=== PATIENT | male | born 1960 | race Caucasian/White ===

== ENCOUNTER 2016-11-14 23:40 | Emergency (ER) | payer BC ==
[~2016-11-14] VITALS: Ht 182.9 cm; Wt 81.6 kg
[~2016-11-14 23:40] MED LIST: NORPTMEDS CO
[2016-11-15 00:59] LABS: INR 1.05 (0.9-1.15); Prothrombin Time 10.8 sec (9.37-12.3)
[2016-11-15 01:00] LABS: Basophils # (auto) 0 uL; Basophils % (auto) 0.3 % (0.0-2.0); Eosinophils # (auto) 0.2 uL; Eosinophils % (auto) 1.4 % (0.0-7.0); Hemoglobin 18.5 g/dL (13.5-17.5); Lymphocytes # (auto) 2.8 uL; Lymphocytes % (auto) 25.1 % (10.0-50.0); Mean Corpuscular Hemoglobin 31.4 pg (28.0-32.0); Mean Corpuscular Hgb Conc. 32.2 g/dL (32.0-36.0); Mean Corpuscular Volume 97.5 fL (80.0-100.0); Mean Platelet Volume 8.1 fL (7.4-10.4); Monocytes # (auto) 0.6 uL; Monocytes % (auto) 5.8 % (0.0-12.0); Neutrophils # (auto) 7.5 uL; Neutrophils % (auto) 67.4 % (37.0-80.0); Platelet Count (auto) 305 10^3/uL (140-450); Red Cell Distribution Width 12.7 % (11.6-16.0); White Blood Cell 11.2 10^3/uL (4.4-10.8)
[2016-11-15 01:01] LABS: Hematocrit 57.7 % (41.0-53.0)
[2016-11-15 01:07] LABS: Albumin 4.3 g/dL (3.4-5.0); Magnesium 2.7 mg/dL (1.6-2.6); Potassium 3.8 mmol/L (3.5-5.1)
[2016-11-15 01:09] LABS: BUN/Creatinine Ratio 9.1
[2016-11-15 01:20] LABS: Bilirubin, Total 0.3 mg/dL (0.2-1.0); Total Protein 8.8 g/dL (6.4-8.2)
[2016-11-15] MEDS ORDERED: SODIUM CHLORIDE 0.9% 1,000 ML IV ONE (07:43)
[2016-11-15 07:45] VITALS: BP 145/87
[2016-11-15] MEDS ORDERED: LORazepam 2MG/ML-1ML VIAL IV ONE (07:45)
== END 2016-11-15 09:23 | disposition home or self-care (01) ==
LOC: EDBD 23:40 → ER 23:43
DX: R07.89 Other chest pain (principal); F10.10 Alcohol abuse, uncomplicated; J44.9 Chronic obstructive pulmonary disease, unspecified; Z87.891 Personal history of nicotine dependence
CPT/HCPCS: 36415; 71010; 80053; 80320; 83735; 84484; 85025; 85610; 85730; 93005; 94761; 96361; 96374; 99285; J2060; J7030

== ENCOUNTER 2018-07-23 20:17 | Emergency (ER) | payer BC ==
[~2018-07-23] VITALS: Ht 180.3 cm; Wt 86.2 kg
[2018-07-23 20:49] VITALS: BP 159/88
[2018-07-23 21:19] LABS: Basophils # (auto) 0.1 uL; Basophils % (auto) 1.3 % (0.0-2.0); Eosinophils # (auto) 0.1 uL; Nucleated Red Blood Cells % 0.3 %; Platelet Count (auto) 312 10^3/uL (140-450); White Blood Cell 5.3 10^3/uL (4.4-10.8)
[2018-07-23 21:20] LABS: Eosinophils % (auto) 2.1 % (0.0-7.0); Hematocrit 51.4 % (41.0-53.0); Hemoglobin 17.8 g/dL (13.5-17.5); Lymphocytes # (auto) 2.4 uL; Lymphocytes % (auto) 45.9 % (10.0-50.0); Mean Corpuscular Hemoglobin 33.7 pg (28.0-32.0); Mean Corpuscular Hgb Conc. 34.7 g/dL (32.0-36.0); Mean Corpuscular Volume 97.1 fL (80.0-100.0); Monocytes # (auto) 0.6 uL; Monocytes % (auto) 11.3 % (0.0-12.0); Neutrophils # (auto) 2.1 uL; Neutrophils % (auto) 39.4 % (37.0-80.0); Red Cell Distribution Width 13.1 % (11.8-14.3)
[2018-07-23 21:33] LABS: Urine Bacteria NONE SEEN /hpf (None Seen); Urine Blood Negative /uL (Negative); Urine Mucus FEW (None Seen); Urine Specific Gravity 1.013 (1.001-1.035); Urine WBC 3 /hpf (0 - 3)
[2018-07-23 21:35] LABS: INR 0.96 (0.9-1.15); Partial Thromboplastin Time 26.8 sec (23.78-33.04); Prothrombin Time 10.3 sec (9.27-12.13)
[2018-07-23 21:43] LABS: Albumin 3.7 g/dL (3.4-5.0); Anion Gap 12 (5-15); Blood Urea Nitrogen 6 mg/dL (7-18); Calcium 7.8 mg/dL (8.5-10.1); Carbon Dioxide 23 mmol/L (21-32); Chloride 107 mmol/L (98-107); Glucose 106 mg/dL (74-106); Potassium 3.9 mmol/L (3.5-5.1); Sodium 142 mmol/L (136-145)
[2018-07-23 21:46] LABS: Alanine Aminotransferase 58 U/L (16-61); Aspartate Aminotransferase 48 U/L (15-37); BUN/Creatinine Ratio 5.7; GFR African American 93 mL/min; GFR Non-African American 77 mL/min
[2018-07-23 21:51] LABS: Alkaline Phosphatase 68 U/L (45-117); Bilirubin, Total 0.5 mg/dL (0.2-1.0)
[2018-07-23 21:52] LABS: Amphetamine Screen, Urine NEGATIVE (NEGATIVE); Barbiturate Scree,Urine NEGATIVE (NEGATIVE); Benzodiazephine Screen, Urine NEGATIVE (NEGATIVE); Cannabinoid Screen, Urine POSITIVE (NEGATIVE); Cocaine Screen, Urine NEGATIVE (NEGATIVE); Opiate Scree,Urine NEGATIVE (NEGATIVE); Phencyclidine Screen, Urine NEGATIVE (NEGATIVE)
== END 2018-07-23 22:39 | disposition left against medical advice (07) ==
LOC: EDBD 20:17 → ER 20:22
DX: R04.2 Hemoptysis (principal); R06.02 Shortness of breath; Z53.21 Procedure and treatment not carried out due to patient leaving prior to being seen by health care provider
CPT/HCPCS: 36415; 71046; 80053; 80307; 81001; 84484; 85025; 85610; 85730

== ENCOUNTER 2020-03-07 16:21 | Inpatient (IN) | payer BC ==
[~2020-03-07] VITALS: Ht 182.9 cm; Wt 105.8 kg
[2020-03-07] MEDS ORDERED: SODIUM CHLORIDE 0.9% 1,000 ML IV ONE ×3 (16:43→17:30)
[2020-03-07] MEDS ORDERED: PANTOPRAZOLE 40 MG/10 ML VIAL INJ IV ONE (17:15)
[2020-03-07 17:25] LABS: Basophils # (auto) 0.1 10 ^3/uL (0-0.2); Basophils % (auto) 0.5 % (0.0-2.0); Eosinophils # (auto) 0.1 10 ^3/uL (0-0.8); Eosinophils % (auto) 0.5 % (0.0-7.0); Hematocrit 39.4 % (41.0-53.0); Hemoglobin 13.3 g/dL (13.5-17.5); Lymphocytes # (auto) 2.9 10 ^3/uL (0.4-5.4); Lymphocytes % (auto) 19.5 % (10.0-50.0); Mean Corpuscular Hemoglobin 33.3 pg (28.0-32.0); Mean Corpuscular Hgb Conc. 33.7 g/dL (32.0-36.0); Mean Corpuscular Volume 98.8 fL (80.0-100.0); Monocytes # (auto) 1.3 10 ^3/uL (0-1.3); Monocytes % (auto) 8.6 % (0.0-12.0); Neutrophils # (auto) 10.4 10 ^3/uL (1.6-8.6); Neutrophils % (auto) 70.9 % (37.0-80.0); Nucleated Red Blood Cells % 0.1 %; Platelet Count (auto) 327 10^3/uL (140-450); Red Blood Cells 3.98 10^6/uL (4.5-5.90); Red Cell Distribution Width 13.1 % (11.8-14.3); White Blood Cell 14.7 10^3/uL (4.4-10.8)
[2020-03-07 17:37] LABS: INR 0.99 (0.9-1.15); Partial Thromboplastin Time 22.7 sec (23.64-32.05)
[2020-03-07 17:38] LABS: Albumin 3.6 g/dL (3.4-5.0); Anion Gap 14 (5-15); Blood Urea Nitrogen 21 mg/dL (7-18); Calcium 8.5 mg/dL (8.5-10.1); Carbon Dioxide 22 mmol/L (21-32); Chloride 99 mmol/L (98-107); Glucose 128 mg/dL (74-106); Sodium 135 mmol/L (136-145)
[2020-03-07 17:44] LABS: Alanine Aminotransferase 38 U/L (16-61); Alkaline Phosphatase 58 U/L (45-117); Aspartate Aminotransferase 29 U/L (15-37); BUN/Creatinine Ratio 11.2; Bilirubin, Total 0.8 mg/dL (0.2-1.0); GFR African American 48 mL/min; GFR Non-African American 40 mL/min; Total Protein 7.6 g/dL (6.4-8.2)
[2020-03-07] MEDS ORDERED: MORPHINE SULF INJ 2 MG/ML SYRINGE 1ML IV PRN (17:45)
[2020-03-07] MEDS ORDERED: NITROGLYCERIN 0.4 MG SL TAB SL PRN (17:45)
[2020-03-07 17:50] LABS: Potassium 2.8 mmol/L (3.5-5.1)
[2020-03-07] MEDS ORDERED: POTASSIUM EFFERVESENT TAB 25 MEQ PO ONE (18:15)
[2020-03-07] MEDS ORDERED: SODIUM CHLORIDE 0.9% 2,650 ML IV ONE (18:15)
[2020-03-07 21:10] VITALS: BP 92/56
[2020-03-07] MEDS: POTASSIUM CHL 20MEQ/100ML 100 ML IV SCH ×2 (21:11→23:06)
[2020-03-07 21:15] VITALS: BP 92/56
--- NOTE | 2020-03-07 21:15 | NUR ---
Telemetry admit from ER STEPHEN SHERMAN admitted to Telemetry unit after SBAR received. Patient oriented to Denise novak RN, unit, room, bed, and unit policies regarding patient care and visiting hours. Patient now on continuous telemetry monitoring, tele box #[id number] and telemetry reading on arrival to unit is SINUS RHYTHM . Patient weighed by bedscale and encouraged to call if they need something. All questions and concerns addressed, patient verbalized understanding. NOTE: PATIENT IS A/OX4 UPON ARRIVING TO UNIT. PATIENT ON ROOM AIR. TWO IV'S IN PLACE. IV TO LEFT AND RIGHT AC 18G. INTACT AND PATENT. K RIDER X3 ORDERED, NOT YET GIVEN BY ER STAFF. WILL ADMINISTER NOW ORDERED BY MD FOR CRITICAL POTASSIUM LEVEL. PATIENT ALSO HAS AN ORDER FOR TWO UNITS OF FFP. UNABLE TO CLARIFY WITH ER NURSE THE REASON FOR FFP ORDER. WILL ATTEMPT TO CLARIFY WITH ORDERING MD. PATIENT NOT ACTIVELY BLEEDING AT THIS TIME. PATIENT STATES LAST BM WAS "THIS MORNING AND IT WAS DARK BLACK". PATIENT OTHERWISE STATES HE IS NOT BLEEDING. LAB VALUES WNL. VITALS STABLE.
[2020-03-07 23:00] VITALS: BP_SYST 59; BP_SYST 99; BP_DIAS 59
--- NOTE | 2020-03-07 23:20 | NUR ---
ORDER CLARIFICATION SPOKE WITH [employer] HOSPITALIST TO CLARIFY ORDER FOR TWO UNITS OF FFP. PATIENTS CHART REVIEWED INCLUDING: REASON FOR ADMISSION, LAST TAKEN LAB VALUES, AND CURRENT PATIENT STATUS. PER , "HOLD THE FRESH FROZEN PLASMA". PATIENT NOT ACTIVELY BLEEDING AND LABS ARE WITHIN NORMAL RANGE. PER , "HAVE DAYSHIFT FOLLOW UP WITH ".
[2020-03-08] MEDS ORDERED: PANTOPRAZOLE 40 MG/10 ML VIAL INJ IV ONE
[2020-03-08] MEDS ORDERED: SUCRALFATE 1 GM/10 ML ORAL SUSP PO ONE
[2020-03-08] MEDS: POTASSIUM CHLORIDE 40 MEQ in D5W/LACTATED RINGERS 1,000 ML IV SCH ×5 (00:23→19:45)
[2020-03-08 01:17] LABS: Urine Bacteria NONE SEEN /hpf (None Seen); Urine Blood Negative /uL (Negative); Urine Hyaline Cast MOD /lpf (0 - 2); Urine Mucus FEW (None Seen); Urine Specific Gravity 1.012 (1.001-1.035); Urine WBC 5 /hpf (0 - 3)
[2020-03-08] MEDS: POTASSIUM CHL 20MEQ/100ML 100 ML IV SCH (01:22)
[2020-03-08 01:26] LABS: Alcohol, Urine < 3.0 mg/dL (0-5); Amphetamine Screen, Urine NEGATIVE (NEGATIVE); Barbiturate Scree,Urine NEGATIVE (NEGATIVE); Benzodiazephine Screen, Urine NEGATIVE (NEGATIVE); Cannabinoid Screen, Urine POSITIVE (NEGATIVE); Cocaine Screen, Urine NEGATIVE (NEGATIVE); Opiate Scree,Urine NEGATIVE (NEGATIVE); Phencyclidine Screen, Urine NEGATIVE (NEGATIVE)
--- NOTE | 2020-03-08 04:33 | NUR ---
EKG EKG COMPLETED ORDERED BY MD FOLLOW UP. PLACED IN HARD CHART FOR MD TO SIGN
[2020-03-08 04:50] VITALS: BP 93/58
[2020-03-08 06:00] VITALS: BP 100/63
[2020-03-08] MEDS: SUCRALFATE 1 GM/10 ML ORAL SUSP PO SCH ×3 (06:06→16:59)
--- NOTE | 2020-03-08 06:57 | NUR ---
CLOSING PATIENT RESTING COMFORTABLY. NO S/S OF DISTRESS. NO BM DURING SHIFT. NO ACTIVE BLEEDING NOTED. PENDING AM LAB RESULTS. IV RUNNING ORDERED FLUIDS TO RIGHT AC. CALL LIGHT WITHIN REACH. WILL ENDORSE CARE TO DAYSHIFT RN
[2020-03-08 07:31] LABS: Basophils # (auto) 0 10 ^3/uL (0-0.2); Basophils % (auto) 0.4 % (0.0-2.0); Eosinophils # (auto) 0.1 10 ^3/uL (0-0.8); Eosinophils % (auto) 1.1 % (0.0-7.0); Hematocrit 29.2 % (41.0-53.0); INR 1.04 (0.9-1.15); Lymphocytes # (auto) 1.9 10 ^3/uL (0.4-5.4); Lymphocytes % (auto) 24.1 % (10.0-50.0); Mean Corpuscular Hgb Conc. 34.4 g/dL (32.0-36.0); Mean Corpuscular Volume 98.9 fL (80.0-100.0); Monocytes # (auto) 0.8 10 ^3/uL (0-1.3); Monocytes % (auto) 10.2 % (0.0-12.0); Neutrophils % (auto) 64.2 % (37.0-80.0); Nucleated Red Blood Cells % 0.1 %; Partial Thromboplastin Time 23.5 sec (23.64-32.05); Platelet Count (auto) 197 10^3/uL (140-450); Red Blood Cells 2.95 10^6/uL (4.5-5.90); Red Cell Distribution Width 12.8 % (11.8-14.3); White Blood Cell 7.9 10^3/uL (4.4-10.8)
[2020-03-08 07:37] LABS: Potassium 3.6 mmol/L (3.5-5.1)
[2020-03-08 07:45] LABS: % Iron Saturation 16.4 % (20-55)
[2020-03-08 07:54] LABS: Albumin 2.6 g/dL (3.4-5.0); BUN/Creatinine Ratio 13.7; Bilirubin, Total 0.7 mg/dL (0.2-1.0); Magnesium 2.3 mg/dL (1.6-2.6); Phosphorus 2.3 mg/dL (2.5-4.90); Total Protein 5.5 g/dL (6.4-8.2)
--- NOTE | 2020-03-08 07:55 | NUR ---
Opening Shift Note Assumed care of patient, awake and alert sitting up in bed. No S/S of distress/SOB or pain. Instructed on POC and to call for assist PRN, will continue to monitor for changes Q1hr and PRN. Addendum: 03/08/20 at 1854 by CAITLYN ZAVALA RN see new note
--- NOTE | 2020-03-08 07:55 | NUR ---
Opening Shift Note Assumed care of patient, awake and alert to person, place, time, and situation. No S/S of distress/SOB or pain. Instructed on POC and to call for assist PRN, will continue to monitor for changes Q1hr and PRN.
[2020-03-08 09:35] VITALS: BP 98/57
[2020-03-08] MEDS: PANTOPRAZOLE 40 MG/10 ML VIAL INJ IV SCH ×2 (09:36→23:03)
--- NOTE | 2020-03-08 12:58 | NUR ---
[facility] Phone call received from Anthony from [place] regarding patient's update on patient's status.
[2020-03-08 13:00] VITALS: BP 104/71
--- NOTE | 2020-03-08 15:30 | NUR ---
Hospitalist Dorian Turk at bedside.
--- NOTE | 2020-03-08 15:40 | NUR ---
FFP As per Dr. Turk, FFP is not indicated at this time. Notified blood bank.
[2020-03-08 17:08] VITALS: BP 127/75
--- NOTE | 2020-03-08 19:30 | NUR ---
Opening Shift Note Assumed care of patient. Patient is awake and alert. No S/S of distress/SOB or pain. Instructed on POC and to call for assist PRN, will continue to monitor for changes Q1hr and PRN. Bed locked in lowest position and bed rails up x2. Call light within reach.
[2020-03-08] MEDS ORDERED: MELATONIN PO PRN (20:00)
[2020-03-08 22:25] VITALS: BP 123/74
[2020-03-09] MEDS: POTASSIUM CHLORIDE 40 MEQ in D5W/LACTATED RINGERS 1,000 ML IV SCH ×2 (00:51→06:07)
[2020-03-09 05:07] VITALS: BP 127/71
[2020-03-09] MEDS: SUCRALFATE 1 GM/10 ML ORAL SUSP PO SCH ×3 (06:07→17:58)
[2020-03-09 06:08] LABS: Basophils # (auto) 0 10 ^3/uL (0-0.2); Eosinophils # (auto) 0.2 10 ^3/uL (0-0.8); Hemoglobin 10.3 g/dL (13.5-17.5); Mean Corpuscular Hgb Conc. 35.3 g/dL (32.0-36.0); Monocytes # (auto) 0.8 10 ^3/uL (0-1.3); Neutrophils # (auto) 4.3 10 ^3/uL (1.6-8.6); Nucleated Red Blood Cells % 0.1 %; Red Blood Cells 2.94 10^6/uL (4.5-5.90)
[2020-03-09 06:11] LABS: Basophils % (auto) 0.5 % (0.0-2.0); Eosinophils % (auto) 2.5 % (0.0-7.0); Hematocrit 29.2 % (41.0-53.0); Lymphocytes % (auto) 26.8 % (10.0-50.0); Mean Corpuscular Volume 99.3 fL (80.0-100.0); Neutrophils % (auto) 59.2 % (37.0-80.0); Platelet Count (auto) 192 10^3/uL (140-450); Red Cell Distribution Width 12.8 % (11.8-14.3); White Blood Cell 7.3 10^3/uL (4.4-10.8)
[2020-03-09 06:28] LABS: Potassium 3.9 mmol/L (3.5-5.1)
[2020-03-09 06:34] LABS: BUN/Creatinine Ratio 9.9; Calcium 7.7 mg/dL (8.5-10.1); Magnesium 3.1 mg/dL (1.6-2.6)
--- NOTE | 2020-03-09 07:32 | NUR ---
RECEIVED PATIENT FROM NOC SHIFT RN. PATIENT ALERT AND ORIENTED X4. NO S/S OF DISTRESS, DENIES SOB AND PAIN AT THIS TIME. PLAN OF CARE DISCUSSED. BED IN LOW AND LOCKED POSITION WITH RAILS UP X2, CALL LIGHT AND PHONE WITHIN REACH. WILL CONTINUE TO MONITOR Q1H AND PRN.
[2020-03-09 08:00] VITALS: BP 123/66
[2020-03-09 09:10] VITALS: BP 123/66
[2020-03-09] MEDS: PANTOPRAZOLE 40 MG/10 ML VIAL INJ IV SCH ×2 (10:23→22:05)
--- NOTE | 2020-03-09 11:33 | NUR ---
[facility]S CASE MANAGEMENT RECEIVED A CALL FROM EDILMA WITH [facility] REGARDING PATIENT'S STATUS UPDATE.
--- NOTE | 2020-03-09 11:33 | NUR ---
POTASSIUM CHL 40MEQ IN D5WLR HELD AT THIS TIME. PATIENT'S CURRENT POTASSIUM LAB LEVEL IS 3.9mmol/L. PHARMACY AWARE AND ADVISING TO MAKE AWARE
--- NOTE | 2020-03-09 11:35 | NUR ---
PAGED TO INFORM OF NORMAL POTASSIUM LAB VALUE. POTASSIUM IV HELD I AWAIT CALL BACK FROM .
[2020-03-09] MEDS ORDERED: GOLYTELY 4L KIT PO ONE (12:00)
[2020-03-09 12:52] VITALS: BP 128/80
--- NOTE | 2020-03-09 14:20 | NUR ---
PAGED AND LEFT A MESSAGED FOR MD REGARDING ADMINISTRATION OF POTASSIUM CHL 40MEQ IN D5W LR. PATIENT'S CURRENT POTASSIUM LEVEL IS NORMALIZED AT 3.9mmol/L. STILL AWAITING RESPONSE FROM MD.
[2020-03-09 17:00] VITALS: BP 111/77
--- NOTE | 2020-03-09 18:31 | NUR ---
DR ALMENDAREZ RESPONDED BACK WITH ORDER TO DISCONTINUE POTASSIUM CHL 40MEQ IN D5WLR 1,000ML.
--- NOTE | 2020-03-09 19:20 | NUR ---
Opening Shift Note Assumed care of patient, awake and alert. No S/S of distress/SOB or pain. Safety measures in place bed in lowest position, side rails up x2, and call light within reach. Instructed on POC and to call for assist PRN, will continue to monitor for changes Q1hr and PRN.
--- NOTE | 2020-03-09 20:20 | NUR ---
IV removal IV DC'd with sterile technique, catheter fully intact. Pressure dressing applied to site. Patient tolerated procedure well.
[2020-03-09 22:37] VITALS: BP 131/84
[2020-03-10 05:29] VITALS: BP 130/73
[2020-03-10] MEDS: SUCRALFATE 1 GM/10 ML ORAL SUSP PO SCH ×2 (06:37→12:20)
--- NOTE | 2020-03-10 07:30 | NUR ---
Opening Note Received report from general office assistant RN. Patient is resting in bed, no signs or symptoms of distress noted at this time. Patient is on room air, respirations even and unlabored. Patient is NPO for scheduled procedure. Bed in low and locked position, call light within reach. Will continue to monitor Q1 hour and PRN.
[2020-03-10 09:00] VITALS: BP 129/76
[2020-03-10] MEDS: PANTOPRAZOLE 40 MG/10 ML VIAL INJ IV SCH (09:52)
--- NOTE | 2020-03-10 10:19 | NUR ---
Patient taken down to pre-op
[2020-03-10] MEDS ORDERED: SUCCINYLCHOLINE CHLORIDE 20 MG/ML 10ML VIAL IV ONE (10:43)
[2020-03-10] MEDS ORDERED: fentaNYL CITRATE 100 MCG/2 ML VL ONE (10:45)
[2020-03-10] MEDS ORDERED: MIDAZOLAM HCL 1MG/1ML-2 ML VIAL ONE (10:45)
[2020-03-10] MEDS ORDERED: PROPOFOL 10 MG/ML 20 ML IV ONE (10:46)
[2020-03-10] MEDS ORDERED: ePHEDrine SULFATE 50 MG/ML AMP IV PRN (11:30)
[2020-03-10] MEDS ORDERED: hydrALAZINE HCL 20 MG/ML VL IV PRN (11:30)
[2020-03-10] MEDS ORDERED: fentaNYL CITRATE 100 MCG/2 ML VL IV PRN (11:30)
[2020-03-10] MEDS ORDERED: ONDANSETRON HCL 4 MG/2 ML VIAL IV PRN (11:30)
--- NOTE | 2020-03-10 11:44 | NUR ---
Patient back to room Patient s/p EGD and colonoscopy. Patient is awake, alert and oriented x4. No signs or symptoms of distress noted at this time. Vital signs within normal limits. Bed alarm on for safety, patient instructed to call for assistance. Will continue to monitor Q1 hour and PRN.
[2020-03-10 13:00] VITALS: BP 117/70
--- NOTE | 2020-03-10 15:44 | NUR ---
dr. Turk at bedside Discussing plan of care with patient and this RN. Patient to discharge home today. Will continue to monitor Q1 hour and PRN.
[2020-03-10 16:05] VITALS: BP 129/76
--- NOTE | 2020-03-10 17:13 | NUR ---
Discharge Discharge instructions given as ordered. Encourage to follow up with PMD as instructed. All questions and concerns addressed. Patient verbalized understanding. Medication reconciliation form completed and copy given to patient. New prescription given to patient. IV catheter removed, catheter intact, pressure dressing applied. quality assurance monitor final removed and sent back to ICU. Patient ambulated to vehicle via with all personal belongings, accompanied by staff member. No signs or symptoms of distress noted at this time.
[2020-03-10] MEDS ORDERED: PANTOPRAZOLE 40 MG TAB PO SCH (22:00)
== END 2020-03-10 17:10 | disposition home or self-care (01) | DRG 377 ==
LOC: ER 16:22 → TELE 16:23 → TELE-WESTW 21:06
PROVIDERS: ADMIT Hospitalist; ATTEND Internal Medicine
PROC: 0DB68ZX Excision of Stomach, Via Natural or Artificial Opening Endoscopic, Diagnostic (ICD-10-PCS; principal; 2020-03-10 10:42)
PROC: 0DBP8ZX Excision of Rectum, Via Natural or Artificial Opening Endoscopic, Diagnostic (ICD-10-PCS; 2020-03-10 10:42)
DX: K29.71 Gastritis, unspecified, with bleeding (principal); N17.0 Acute kidney failure with tubular necrosis; I21.A1 Myocardial infarction type 2; K29.81 Duodenitis with bleeding; I12.9 Hypertensive chronic kidney disease with stage 1 through stage 4 chronic kidney disease, or unspecified chronic kidney disease; J44.9 Chronic obstructive pulmonary disease, unspecified; K62.1 Rectal polyp; N18.9 Chronic kidney disease, unspecified; F51.04 Psychophysiologic insomnia; K64.8 Other hemorrhoids; F12.90 Cannabis use, unspecified, uncomplicated; D50.9 Iron deficiency anemia, unspecified; D72.829 Elevated white blood cell count, unspecified; E87.6 Hypokalemia; K57.31 Diverticulosis of large intestine without perforation or abscess with bleeding; Z87.11 Personal history of peptic ulcer disease
CPT/HCPCS: 36415; 70450; 71045; 74176; 80048; 80053; 80061; 80307; 81001; 82550; 83036; 83540; 83550; 83735; 84100; 84484; 85025; 85045; 85610; 85730; 86850; 86900; 86901; 93005; 96361; 96374; 99291; C9113; G0378; J0330; J2250; J2704; J3480

== ENCOUNTER 2021-04-27 16:26 | Emergency (ER) | payer BC ==
[~2021-04-27] VITALS: Ht 175.3 cm; Wt 99.8 kg
[2021-04-27] MEDS ORDERED: LIDOCAINE 1% (LOCAL ANESTH.) PF 5ml SDV ID ONE (17:00)
[2021-04-27] MEDS ORDERED: TETANUS-DIPTH-ACEL PERTUSSIS 0.5ML SYR Tdap IM ONE (17:00)
[2021-04-27 19:21] VITALS: BP 143/79
== END 2021-04-27 19:45 | disposition home or self-care (01) ==
LOC: ER 16:26 → EDBD 16:26 → ER 19:45
DX: S91.312A Laceration without foreign body, left foot, initial encounter (principal); Z87.891 Personal history of nicotine dependence; W25.XXXA Contact with sharp glass, initial encounter; Y93.89 Activity, other specified; Y92.89 Other specified places as the place of occurrence of the external cause; Y99.8 Other external cause status
CPT/HCPCS: 73620; 90471; 90715

== ENCOUNTER 2022-04-16 15:33 | Emergency (ER) | payer BC ==
[~2022-04-16] VITALS: Ht 182.9 cm; Wt 90.7 kg
[2022-04-16 15:35] VITALS: BP 154/98
[2022-04-16] MEDS ORDERED: CIPRSUS OT (17:57)
== END 2022-04-16 18:06 | disposition home or self-care (01) ==
LOC: ER 15:33
DX: H61.22 Impacted cerumen, left ear (principal); F12.10 Cannabis abuse, uncomplicated; Z87.891 Personal history of nicotine dependence
CPT/HCPCS: 69209

== ENCOUNTER → 2022-12-17 | Emergency (ER) | payer BC ==
[~2022-12-17] VITALS: Ht 185.4 cm; Wt 105.6 kg
[~2022-12-17] MED LIST changes: +CIPRSUS OT
[2022-12-17 14:25] VITALS: BP 141/69
== END | disposition left against medical advice (07) ==
LOC: ER 14:21
DX: L02.01 Cutaneous abscess of face (principal); Z53.21 Procedure and treatment not carried out due to patient leaving prior to being seen by health care provider

== ENCOUNTER 2024-06-24 13:36 | Emergency (ER) | payer BC ==
[~2024-06-24] VITALS: Ht 185.4 cm; Wt 104.8 kg
[~2024-06-24 13:36] MED LIST changes: +SULF400T11 PO
[2024-06-24 14:35] VITALS: TEMP 98.6; O2SAT 96
[2024-06-24] MEDS: HYDROcodone-ACET 10/325MG TAB PO ONE (15:32)
[2024-06-24] MEDS ORDERED: IBUP-1455 PO (16:35)
[2024-06-24] MEDS ORDERED: PERCOT PO (16:35)
[2024-06-24 16:40] VITALS: BP 155/83; PULSE 90; RESP 20
[2024-06-24] MEDS: HYDROmorphone HCL 2 MG/ML VL/or syr IM ONE (16:40)
== END 2024-06-24 16:59 | disposition home or self-care (01) ==
LOC: ER 13:36
DX: S82.61XA Displaced fracture of lateral malleolus of right fibula, initial encounter for closed fracture (principal); F15.90 Other stimulant use, unspecified, uncomplicated; Z79.899 Other long term (current) drug therapy; X50.1XXA Overexertion from prolonged static or awkward postures, initial encounter; Y93.89 Activity, other specified; Y92.89 Other specified places as the place of occurrence of the external cause; Y99.8 Other external cause status
CPT/HCPCS: 29515; 73610; 73630; 96372; 99284; J1170

== ENCOUNTER 2024-11-05 16:28 | Emergency (ER) | payer BC ==
[~2024-11-05] VITALS: Ht 182.9 cm; Wt 125.0 kg
[2024-11-05 16:28] VITALS: BP 127/88; PULSE 106; RESP 18; O2SAT 98
[~2024-11-05 16:28] MED LIST changes: +IBUP-1455 PO; +PERCOT PO
--- NOTE | 2024-11-05 16:48 | ED.PDOC ---
History of Present Illness HPI Comments This is a 64-year-old male who comes in with chief complaint of alcohol intoxication. The patient states that she was calling 911 for a neighbor who we thought was out of control. He states that he also had a gun missing so he was very concerned. When paramedics arrived, the patient was thoroughly intoxicated so they brought him to the emergency department's for evaluation. Upon arrival, the patient was denying any homicidal or suicidal ideation. He is not complaining of any nausea and vomiting but he does state that he drinks too much alcohol. Chief Complaint: ETOH Time Seen by MD: 16:32 Primary Care Provider: DENA Reviewed Notes: Nurses Notes, Medications, Allergies (No allergies to medications) Allergies: Coded Allergies: NO KNOWN ALLERGIES (Unverified , 12/17/22) Home Meds Active Scripts Oxycodone W/ Acetaminophen (Percocet 5/325MG) 1 Tab Tb, 1 TAB PO Q8HP PRN, #20 TAB Prov:GABE LOREDO PAC 06/24/24 Ibuprofen Micronized (Ibuprofen) 800 Mg Tab, 800 MG PO Q8HP PRN, #30 TAB Prov:GABE LOREDO PAC 06/24/24 Sulfamethoxazole-Trimethoprim (Bactrim) 1 Tab Tab, 1 TAB PO BID for 7 Days, #14 TAB 0 Refills Prov:WILTON LIMA 12/18/22 Ciprofloxacin-Hydrocortisone (Cipro Hc 0.2-1 %) 1 Sarah Sarah, 10 DROP OT BID, #10 ML Prov:SANDRA LOW 04/16/22 Reported Medications No Reported Medication (NO REPORTED MEDICATION) Ea, 0 CO UNK, EA PATIENT HAS NO REPORTED MEDICATIONS 09/24/13 Information Source: Patient, Emergency Med Personnel Mode of Arrival: EMS Severity: Mild Timing: Hours Duration: Since onset Prehospital treatment: None Associated signs and symptoms Alcohol intoxication Past Medical History PAST MEDICAL HISTORY: DM, HTN Past Medical History (Other): Neuropathy Surgical History: Hernia Repair Family History Family History: Reviewed,noncontributory to illness Social History Smoker: Cigar Alcohol: Heavy Drugs: Marijuana Lives In: Home Constitutional: denies: chills, diaphoresis, fatigue, fever, malaise, sweats, weakness, others EENTM: denies: blurred vision, double vision, ear bleeding, ear discharge, ear drainage, ear pain, ear ringing, eye pain, eye redness, hearing loss, mouth pain, mouth swelling, nasal discharge, nose bleeding, nose congestion, nose pain, photophobia, tearing, throat pain, throat swelling, voice changes, others Respiratory: denies: cough, hemoptysis, orthopnea, SOB at rest, shortness of breath, SOB with excertion, stridor, wheezing, others Cardiovascular: denies: chest pain, dizzy spells, diaphoresis, Dyspnea on exertion, edema, irregular heart beat, left arm pain, lightheadedness, palpitations, PND, syncope, others Gastrointestinal: denies: abdomen distended, abdominal pain, blood streaked bowels, constipated, diarrhea, dysphagia, difficulty swallowing, hematemesis, melena, nausea, poor appetite, poor fluid intake, rectal bleeding, rectal pain, vomiting, others Genitourinary: denies: burning, dysuria, flank pain, frequency, hematuria, inc ontinence, penile discharge, penile sore, pain, testicle pain, testicle swelling, urgency, others Neurological: reports: others (Alcohol intoxication); denies: dizziness, fainting, headache, left sided numbness, left sided weakness, numbness, paresthesia, pre-existing deficit, right sided numbness, right sided weakness, seizure, speech problems, tingling, tremors, weakness Musculoskeletal: denies: back pain, gout, joint pain, joint swelling, muscle pain, muscle stiffness, neck pain, others Integumetry: denies: bruises, change in color, change in hair/nails, dryness, laceration, lesions, lumps, rash, wounds, others Allergic/Immunocompromised: denies: Difficulty Healing, Frequent Infections, Hives, Itching, others Hematologic/Lymphatic: denies: anemia, blood clots, easy bleeding, easy bruising, swollen glands, others Endocrine: denies: excessive hunger, excessive sweating, excessive thirst, excessive urination, flushing, intolerance to cold, intolerance to heat, unexplained weight gain, unexplained weight loss, others Psychiatric: denies: anxiety, bipolar disorder, depression, hopeless, panic disorder, schizophrenia, sleepless, suicidal, others Physical Exam General Appearance: Mild Distress HEENT: Normal ENT Inspection, Pharynx Normal, TMs Normal Neck: Full Range of Motion, Non-Tender, Normal, Normal Inspection Respiratory: Chest Non-Tender, Lungs Clear, No Accessory Muscle Use, No Respiratory Distress, Normal Breath Sounds Cardiovascular: No Edema, No JVD, No Murmur, No Gallop, Normal Peripheral Pulses, Regular Rate/Rhythm Breast Exam: Deferred Gastrointestinal: No Organomegaly, Non Tender, No Pulsatile Mass, Normal Bowel Sounds, Soft Genitalia: Deferred Pelvic: Deferred Rectal: Deferred Extremities: No calf tenderness, Normal capillary refill, Normal inspection, Normal range of motion, Non-tender, No pedal edema Musculoskeletal : Apperance: Normal Neurologic: Alert, corn husk baler II-XII nml as Tested, No Motor Deficits, Normal Affect, Normal Mood, No Sensory Deficits Cerebellar Function: Normal Reflexes: Normal Skin: Dry, Normal Color, Warm Lymphatic: No Adenopathy Was a procedure done? Was a procedure done?: No Differential Dx Considerations may include: Alcohol intoxication, generalized weakness, substance use X-Ray, Labs, Meds, VS Vital Signs Date Time Temp Pulse Resp B/P (MAP) Pulse Ox O2 Delivery O2 Flow Rate FiO2 11/05/24 16:28 97.8 106 18 127/88 (101) 98 Lab Test 11/05/24 17:42 Range/Units Plasma/Serum Blood Alcohol 380.2 H <10 mg/dL Current Medications Medications (Trade) Dose Ordered Sig/Andrew Route Start Time Stop Time Status Last Admin Sodium Chloride 1,000 ml @ 1,000 mls/hr Q1H ONCE IVB 11/05/24 16:45 11/05/24 17:44 DC 11/05/24 17:34 IV Hep-Lock was established The patient was given 1 L bolus of normal saline The patient's alcohol level was 380.2 At this time, the patient is being discharged with family They did come and pick him up Time of 1ST Reevaluation: 16:47 Reevaluation 1ST: Improved Patient Education/Counseling: Diagnosis, Treatment, Prognosis, Need For Follow Up Family Education/Counseling: No Family Present Departure 1 Departure Time of Disposition: 19:22 Impression: Primary Impression: Alcohol intoxication Qualified Codes: F10.920 - Alcohol use, unspecified with intoxication, u ncomplicated Disposition: 01 HOME / SELF CARE / HOMELESS Condition: Fair Discharged With: Self, Relative Critical Care Note Critical Care Time?: No Stability Stability form required: No Heart Score Heart Score: Heart Score Response (Comments) Value History N/A 0 EKG N/A 0 Age N/A 0 Risk Factors N/A 0 Troponin N/A 0 Total 0 GRACIE HIDALGO MD Nov 05, 2024 16:48
[2024-11-05] MEDS: SODIUM CHLORIDE 0.9% 1,000 ML IVB ONE (17:34)
== END 2024-11-05 20:02 | disposition left against medical advice (07) ==
LOC: EDUNIT# 16:28 → EDBD 16:28 → ER 16:31
DX: F10.129 Alcohol abuse with intoxication, unspecified (principal); E11.9 Type 2 diabetes mellitus without complications; I10 Essential (primary) hypertension; F17.210 Nicotine dependence, cigarettes, uncomplicated; F12.90 Cannabis use, unspecified, uncomplicated; Z79.899 Other long term (current) drug therapy; Z98.890 Other specified postprocedural states
CPT/HCPCS: 36415; 80320; 96360; 99283; J7030

== ENCOUNTER 2025-06-17 09:14 | Emergency (ER) | payer BC ==
[~2025-06-17] VITALS: Ht 182.9 cm; Wt 104.5 kg
[2025-06-17 09:21] VITALS: TEMP 98
--- NOTE | 2025-06-17 09:37 | ED.PDOC ---
Musculoskeletal HPI Comments This is a 64 year old male ROBA presenting to the ED with chief complaint of bilateral toe pain. Patient reports that he has been experiencing toe pain for some time, not sure why. EMS relays that the patient is currently drunk and patient admitted to drinking heavily today. Patient denies any further symptoms or complaints at this time. Chief Complaint: ETOH Time Seen by MD: 09:35 Primary Care Provider: ? Reviewed Notes: Nurses Notes, Air Operations Manager Notes, Medications, Allergies Allergies: Coded Allergies: NO KNOWN ALLERGIES (Unverified , 12/17/22) Home Meds Active Scripts Oxycodone W/ Acetaminophen (Percocet 5/325MG) 1 Tab Tb, 1 TAB PO Q8HP PRN, #20 TAB Prov:GABE LORDEO PAC 06/24/24 Ibuprofen Micronized (Ibuprofen) 800 Mg Tab, 800 MG PO Q8HP PRN, #30 TAB Prov:GABE LOREDO PAC 06/24/24 Sulfamethoxazole-Trimethoprim (Bactrim) 1 Tab Tab, 1 TAB PO BID for 7 Days, #14 TAB 0 Refills Prov:WILTON LIMA 12/18/22 Ciprofloxacin-Hydrocortisone (Cipro Hc 0.2-1 %) 1 Sarah Sarah, 10 DROP OT BID, #10 ML Prov:SANDRA LOW 04/16/22 Reported Medications No Reported Medication (NO REPORTED MEDICATION) Ea, 0 CO UNK, EA PATIENT HAS NO REPORTED MEDICATIONS 09/24/13 Information Source: Patient Mode of Arrival: EMS Location: Bilateral Extremity Location: Great Toe, Little Toe, Toe 2, Toe 3, Toe 4 Timing: Days Prehospital treatment: None Severity: Mild Able to Move Extremity: Yes Bear Weight: Fully Pain: Mild Mechanism: Spontaneous Circumstances: Spontaneous Onset of Symptoms: Spontaneous Symptoms: Pain DVT Risk Factors: NONE Past Medical History PAST MEDICAL HISTORY: DM, HTN Surgical History: Hernia Repair Family History Family History: Reviewed,noncontributory to illness Social History Smoker: Cigar Alcohol: Heavy Drugs: Marijuana Lives In: Home Constitutional: denies: chills, diaphoresis, fatigue, fever, malaise, sweats, weakness, others EENTM: denies: blurred vision, double vision, ear bleeding, ear discharge, ear drainage, ear pain, ear ringing, eye pain, eye redness, hearing loss, mouth pain, mouth swelling, nasal discharge, nose bleeding, nose congestion, nose pain, photophobia, tearing, throat pain, throat swelling, voice changes, others Respiratory: denies: cough, hemoptysis, orthopnea, SOB at rest, shortness of breath, SOB with excertion, stridor, wheezing, others Cardiovascular: denies: chest pain, dizzy spells, diaphoresis, Dyspnea on exertion, edema, irregular heart beat, left arm pain, lightheadedness, palpitations, PND, syncope, others Gastrointestinal: denies: abdomen distended, abdominal pain, blood streaked bowels, constipated, diarrhea, dysphagia, difficulty swallowing, hematemesis, melena, nausea, poor appetite, poor fluid intake, rectal bleeding, rectal pain, vomiting, others Genitourinary: denies: burning, dysuria, flank pain, frequency, hematuria, incontinence, penile discharge, penile sore, pain, testicle pain, testicle swelling, urgency, others Neurological: denies: dizziness, fainting, headache, left sided numbness, left sided weakness, numbness, paresthesia, pre-existing deficit, right sided numbness, right sided weakness, seizure, speech problems, tingling, tremors, weakness, others Musculoskeletal: reports: others (toe pain); denies: back pain, gout, joint pain, joint swelling, muscle pain, muscle stiffness, neck pain Integumetry: denies: bruises, change in color, change in hair/nails, dryness, laceration, lesions, lumps, rash, wounds, others Allergic/Immunocompromised: denies: Difficulty Healing, Frequent Infections, Hives, Itching, others Hematologic/Lymphatic: denies: anemia, blood clots, easy bleeding, easy bruising, swollen glands, others Endocrine: denies: excessive hunger, excessive sweating, excessive thirst, excessive urination, flushing, intolerance to cold, intolerance to heat, unexplained weight gain, unexplained weight loss, others Psychiatric: denies: anxiety, bipolar disorder, depression, hopeless, panic disorder, schizophrenia, sleepless, suicidal, others All Other Systems: Reviewed and Negative Physical Exam General Appearance: Moderate Distress, Normal HEENT: Normal ENT Inspection, Pharynx Normal, TMs Normal Neck: Full Range of Motion, Non-Tender, Normal, Normal Inspection Respiratory: Chest Non-Tender, Lungs Clear, No Accessory Muscle Use, No Respiratory Distress, Normal Breath Sounds Cardiovascular: No Edema, No JVD, No Murmur, No Gallop, Normal Peripheral Pulses, Regular Rate/Rhythm Breast Exam: Deferred Gastrointestinal: No Organomegaly, Non Tender, No Pulsatile Mass, Normal Bowel Sounds, Soft Genitalia: Deferred Pelvic: Deferred Rectal: Deferred Extremities: No calf tenderness, Normal capillary refill, Normal inspection, Normal range of motion, Non-tender, No pedal edema Musculoskeletal : Apperance: Normal Neurologic: Alert, welfare analyst II-XII nml as Tested, No Motor Deficits, Normal Affect, Normal Mood, No Sensory Deficits Cerebellar Function: Normal Reflexes: Normal Skin: Dry, Normal Color, Warm Peripheral Pulses: 3+ Radial (R), 3+ Radial (L) Lymphatic: No Adenopathy Was a procedure done? Was a procedure done?: No Differential Diagnosis EXT Differential Diagnosis: Sprain, Strain X-Ray, Labs, Meds, VS Vital Signs Date Time Temp Pulse Resp B/P (MAP) Pulse Ox O2 Delivery O2 Flow Rate FiO2 06/17/25 09:21 98.0 87 18 169/83 96 98.0 Patient alert. Alcohol on his breath. Blood pressure elevated Establish intravenous access. He has been fluids Was given thiamine. No sign of any injury. Counseled patient on effects of drinking for 15 minutes. Explained to the patient Continue monitoring. Time of 1ST Reevaluation: 10:34 Reevaluation 1ST: Unchanged Patient Education/Counseling: Diagnosis, Treatment Family Education/Counseling: No Family Present Departure 1 Departure Time of Disposition: 09:53 Impression: Primary Impression: Alcohol abuse Additional Impression: Hypertensive urgency Disposition: 30 STILL A PATIENT Condition: Good Critical Care Note Critical Care Time?: No Stability Stability form required: No Heart Score Heart Score: Heart Score Response (Comments) Value History N/A 0 EKG N/A 0 Age N/A 0 Risk Factors N/A 0 Troponin N/A 0 Total 0 I personally scribed for ALICE TAMAYO MD ([email or web address]) on 06/17/25 at 09:37. Electronically submitted by Cheko Brown ([email or web address]). ALICE TAMAYO MD Jun 17, 2025 09:37
[2025-06-17 11:27] LABS: Anion Gap 16 (5-15); Chloride 104 mmol/L (98-107); Sodium 140 mmol/L (136-145)
[2025-06-17 11:28] LABS: Calcium 9.5 mg/dL (8.7-10.4)
[2025-06-17 11:29] LABS: Carbon Dioxide 20 mmol/L (20-31); Potassium 3.4 mmol/L (3.5-5.1)
[2025-06-17 11:31] VITALS: BP 136/77; PULSE 99; RESP 18; O2SAT 98
[2025-06-17 11:33] LABS: BUN/Creatinine Ratio 12.0 (10.0-20.0); Blood Urea Nitrogen 14 mg/dL (9-23); Glucose 144 mg/dL (74-106)
[2025-06-17] MEDS: SODIUM CHLORIDE 0.9% 1,000 ML IVB ONE (11:52)
[2025-06-17] MEDS: ONDANSETRON HCL 4 MG/2 ML VIAL IV ONE (11:52)
[2025-06-17] MEDS: THIAMINE 100mg/ml INJ (200mg/2ml VIAL) IV ONE (11:54)
== END 2025-06-17 12:50 | disposition left against medical advice (07) ==
LOC: EDUNIT# 09:14 → EDBD 09:14 → ER 09:14
DX: I16.0 Hypertensive urgency (principal); F10.10 Alcohol abuse, uncomplicated; E11.9 Type 2 diabetes mellitus without complications; I10 Essential (primary) hypertension; F17.290 Nicotine dependence, other tobacco product, uncomplicated; Z98.890 Other specified postprocedural states; Z79.899 Other long term (current) drug therapy; Y90.9 Presence of alcohol in blood, level not specified
CPT/HCPCS: 36415; 80048; 80320; 96361; 96374; 96375; 99284; J2405; J3411; J7030